=== PATIENT | male | born 1940 | race Caucasian/White ===

== ENCOUNTER → 2017-10-17 | Day surgery (SDC) | payer MEDICARE, OTHER ==
[2017-10-14 11:47] LABS: BASOPHILS # (AUTO) 0.1 (0.0-0.1); BASOPHILS % 0.5 % (0.0-1.0); EOSINOPHILS # (AUTO) 0.3 (0.0-0.4); EOSINOPHILS % 3.4 % (0.0-6.0); HEMATOCRIT 42.9 % (38.2-49.6); HEMOGLOBIN 14.3 g/dL (14.0-18.0); LYMPHOCYTES % 32.9 % (18.0-39.1); MEAN CORPUSCULAR HGB CONC 33.3 g/dL (31-35); MEAN CORPUSCULAR VOLUME 92.9 fL (81-99); MONOCYTES # (AUTO) 0.6 (0.2-0.8); MONOCYTES % 6.6 % (4.4-11.3); NEUTROPHILS # (AUTO) 5.1 (2.1-6.9); NEUTROPHILS % 56.2 % (38.7-80.0); PLATELET COUNT 266 x10e3/uL (140-360); RED BLOOD COUNT 4.62 x10e6/uL (4.3-5.7); RED CELL DISTRIBUTION WIDTH 14.3 % (11.7-14.4)
[2017-10-14 12:01] LABS: ANION GAP 15.4 mmol/L (8-16); CALCIUM 9.8 mg/dL (8.4-10.2); CREATININE, SERUM 1.24 mg/dL (0.72-1.25); POTASSIUM 5.4 mmol/L (3.5-5.1)
--- NOTE | 2017-10-14 12:39 | Diagnostic Imaging Report ---
PROCEDURE: X-RAY CHEST, TWO VIEWS COMPARISON: None. INDICATIONS: PRE-OPERATIVE CHEST X-RAY FOR RIGHT WRIST SURGERY FINDINGS: LUNGS: Diffusely hyperinflated. No mass or infiltrate. No interstitial thickening. Pulmonary vascular markings are normal. PLEURA: No effusions or pneumothorax. HEART \T\ MEDIASTINUM: The heart is within normal size-limits. Mild aortic ectasia. BONES \T\ SOFT TISSUES: No focal osseous lesions. Soft tissues are unremarkable. CONCLUSION: Pulmonary hyperinflation suggestive of small airways disease. No acute cardiopulmonary process. Dictated by: Taran Blair M.D. on 10/14/2017 at 12:43 Electronically approved by: Taran Blair M.D. on 10/14/2017 at 12:43
[~2017-10-17] MED LIST: BUPIVACAINE HCL 0.5% INJ 30 ML VIAL INJ ONE; CEFAZOLIN SOD 1 GM VIAL ONE; COQ10; DEXAMETHASONE SOD PHOS INJ 4 MG/ML VIAL ONE; EYE LUBRICANT OPTH OINT 3.5GM TUBE OP ONE; FENTANYL CITRATE/PF 100MCG/2 ML INJ ONE; LIDOCAINE HCL 2% LOCAL INJ 5 ML SDV VIAL INJ ONE; ONDANSETRON HCL INJ 2 MG/ML VIAL ONE; PROPOFOL IV EMULSION 10 MG/ML 20 ML VIAL ONE; REPAGLINIDE PO; SEVOFLURANE INHAL SOLN 250 ML PEN BTL ONE; URSODIOL300 MG PO; Z PROGRAF PO; Z.0.CENTRUM SILVER1 PO; Z.0.DIOVAN40 MG PO; Z.0.LOVAZA1 GM PO; Z.0.MAGNESIUM400 MG; Z.0.NEXIUM40 MG PO; Z.0.OSCAL D500 MG; Z.0.PRAVASTATIN SOD2 PO; Z.0.PREDNISONE5 MG PO; Z.0.VITAMIN D50000 U PO; Z.0.ZYRTEC10 MG PO; [UNRECOGNIZED DRUG - OTHER] PO
--- NOTE | 2017-10-17 08:08 | Operative Report ---
DATE OF PROCEDURE: October 17, 2017 SIGN MAINTENANCE: Star Champion PA-C The patient was brought to the operating room for induction of anesthesia. Throughout this case, my PA's assistance was necessary for retraction of soft tissue and positioning of the extremity. This allows for efficient and technically successful execution of the operation and is considered medically necessary. PREOPERATIVE DIAGNOSIS: Mass, right hand. POSTOPERATIVE DIAGNOSIS: Mass, right hand. PROCEDURE: Excisional biopsy, right hand. INDICATIONS: The patient is a 77-year-old gentleman who has a nodular mass in line with his right 3rd finger. He feels this is uncomfortable. The findings and options have been discussed. He would like to have this excised. The risks and benefits have been explained. He states he understands and wishes to proceed. DESCRIPTION OF PROCEDURE: The patient was brought to the operating room and given IV general anesthetic. He has a history of liver and kidney transplant. His right upper extremity was prepped and draped in a sterile manner. A preoperative time out was performed. The extremity was exsanguinated and a proximal tourniquet was inflated to 250 mmHg. A transverse incision in line with the 3rd finger and the distal palmar crease was made. The mass was carefully exposed with tenotomy scissors and Trace forceps. 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 This was excised. This was sent to pathology. The A1 ascencion was released. The tendon was retracted and noted to be normal. The wound was irrigated and closed with 2 interrupted nylon stitches. One mL of 0.5% Marcaine without epinephrine was injected around the incision. A sterile bandage was applied. He was transported to the recovery room in stable condition. There was no blood loss. All needle and sponge counts were correct. Job#: [id number] [employer]
== END | disposition home or self-care (01) ==
LOC: OR 05:05
PROVIDERS: ATTEND Specialist
DX: D21.11 Benign neoplasm of connective and other soft tissue of right upper limb, including shoulder (principal); Z94.4 Liver transplant status; Z94.0 Kidney transplant status; I10 Essential (primary) hypertension; E11.9 Type 2 diabetes mellitus without complications; K21.9 Gastro-esophageal reflux disease without esophagitis; Z88.2 Allergy status to sulfonamides; Z01.812 Encounter for preprocedural laboratory examination; Z01.818 Encounter for other preprocedural examination; Z79.84 Long term (current) use of oral hypoglycemic drugs
CPT/HCPCS: 11420; 36415 ×2; 71046; 80048; 82948; 84132; 85025; 88304; J0690; J1100; J2001; J2405